=== PATIENT | male | born 1990 | race African-American/Black ===

== ENCOUNTER 2017-01-15 03:25 | Emergency (ER) | payer OTHER ==
[~2017-01-15] VITALS: Ht 180.3 cm; Wt 77.1 kg
--- NOTE | ~2017-01-15 | EKG ---
[place] [address] [facility] [place] [address] ELECTROCARDIOGRAM REPORT Name: ABHISHEK HUSAIN Room #: DEP OPAL Benitez#: [id number] Admission: 01/15/17 Attend Phys: Discharge: 01/15/17 Date of : 86 Report #: [id number] THIS REPORT FOR: //name// [facility] ED Test Date: 2017-01-15 Test Time: 03:41:33 Pat Name: ABHISHEK HUSAIN Department: Room: Gender: M Chip Mucker: PATRICIA : 1990 Requested By: Lizandro Butler Order Number: [id number] MD: Darek Orlando Measurements Intervals [place] Rate: 60 P: 11 UT: 158 QRS: 66 QRSD: 78 T: 51 QT: 375 QTc: 375 Interpretive Statements Sinus rhythm ST elevation, consider lateral injury No previous ECG available for comparison Electronically Signed On 01-19-2017 21:47:33 CDT by Darek Orlando [email or web address] <ELECTRONICALLY SIGNED> By: Darek Orlando MD 01/19/17 [id number] Darek Orlando MD /PRECIOUS
[2017-01-15] MEDS ORDERED: VENTOLIN HFA 1818 GM INH ×2 (03:34→03:47)
[2017-01-15 04:12] LABS: HEMATOCRIT 44.1 % (42.0-52.0); HEMOGLOBIN 14.9 gm/dL (14.0-18.0); MCH 27.1 pg (26.0-34.0); MCHC 33.8 g/dL (28.0-37.0); MCV 80.2 fL (80.0-100.0); RBC 5.5 mil/uL (4.50-6.00); RDW 13.6 % (10.5-14.5); WBC 6.3 thou/uL (4.0-11.0)
[2017-01-15 04:19] LABS: ANION GAP 7 mmol/L (7-16); BUN 13 mg/dL (7-18); CALCIUM 8.7 mg/dL (8.5-10.1); CHLORIDE 101 mmol/L (98-107); CO2 31 mmol/L (21-32); GLUCOSE 108 mg/dL (74-106); POTASSIUM 3.6 mmol/L (3.5-5.1); SODIUM 139 mmol/L (136-145)
[2017-01-15 04:36] LABS: CK-MB MASS 1.5 ng/mL (<0.5-3.6); TROPONIN-I < 0.04 ng/mL (<0.04-0.07)
[2017-01-15 06:09] VITALS: BP 112/69
== END 2017-01-15 06:12 | disposition home or self-care (01) ==
LOC: ER 03:25
PROVIDERS: Emergency Medicine
DX: R06.00 Dyspnea, unspecified (principal); Z87.891 Personal history of nicotine dependence